=== PATIENT | male | born 1955 | race Hispanic/Latino ===

== ENCOUNTER 2020-09-30 05:56 | Day surgery (SDC) | payer OTHER ==
[2020-09-30] MEDS ORDERED: ASPIRIN EC 325 MG TAB PO ONE (06:50)
[2020-09-30] MEDS ORDERED: SODIUM CHLORIDE 0.9% 500 ML 500 ML IV SCH (07:00)
[2020-09-30] MEDS ORDERED: ASPIRIN EC 81 MG TAB PO ONE ×2 (07:25→07:26)
[2020-09-30] MEDS ORDERED: HEPARIN/NS 5000 UNIT/500ML 1,000 ML IR ONE (07:56)
[2020-09-30] MEDS: LIDOCAINE (2%) 20 MG/1 ML VIAL 20 ML MDV INFILTRATI ONE ×2 (08:29→08:45)
[2020-09-30] MEDS: fentaNYL 100 MCG/2 ML INJ ONE ×2 (08:29→08:38)
[2020-09-30] MEDS: MIDAZOLAM 2 MG/2 ML INJ ONE ×2 (08:29→08:38)
[2020-09-30] MEDS: VERAPAMIL 5 MG/2 ML INJ ONE ×2 (08:30→08:49)
[2020-09-30] MEDS: HEPARIN 10,000 UNITS/10 ML VIAL ONE ×2 (08:30→08:49)
[2020-09-30] MEDS: NITROGLYCERIN SYRINGE 3 ML ONE ×2 (08:31→08:49)
--- NOTE | 2020-09-30 09:25 | Cardiac Catherization Report ---
LEFT HEART CATHETERIZATION CLINICAL INFORMATION: A 64-year-old gentleman who is a smoker, diabetes, hypertension, cholesterol, known coronary artery disease, having worsening exertional shortness of breath and chest pain with exertion, known [employer] of RCA. PROCEDURE: Moderate sedation started at 8:38, finished at 9:00, 22 minutes of moderate sedation. Procedure was done via the right radial artery, sterile technique, local anesthesia, 6-Portuguese radial sheath inserted. Left system engaged with a JL3.5 catheter. Left main is large and patent, bifurcates into large LAD, proximal, mid diffuse disease with areas of 60-90%, small diagonal 1, 2 and 3 are patent, rest mid to distal LAD is a medium to large caliber vessel that is patent. Circumflex is a medium to large caliber vessel, mid stent is patent. OM1 ostial has 90% of a medium caliber vessel. OM2 is a medium caliber vessel, ostial 20%. Circumflex bifurcation has 20% lesion. You see left to right collaterals feeding to a small to medium caliber PDA. RCA is a medium caliber vessel, proximal 100%. LV gram done in HEBREW and MCDANIEL view shows normal LV function, LVEDP of 10 mmHg, LV is 160. Aortic is 157/69, no gradient across the aortic valve on pullback. 5-Portuguese catheters all taken over guidewire, 6-Portuguese radial sheath was discontinued. Radial band applied. No hematoma, no bleeding. SUMMARY: Left main patent, LAD proximal, mid diffuse 60-90%, mid to distal LAD patent, small diagonal 1, 2, and 3 patent, circumflex mid stent patent. Then, another 20% lesion. OM1 ostial medium caliber, 90%. OM2 ostial 20%, RCA 100% with left to right collaterals, normal LV function. The patient will be referred for bypass surgery. Discussed this with the patient and the patient's family and the patient will stop Plavix therapy. JOB# [id number] PHANI/GELY
[2020-09-30] MEDS ORDERED: HYDROcodone/ACETAMINOPHEN 5-325 MG TAB PO PRN (09:27)
[2020-09-30] MEDS ORDERED: traMADol 50 MG TAB PO PRN (09:27)
--- NOTE | 2020-09-30 09:30 | Short Stay Summary ---
Short Stay Documentation Date of service: 09/30/20 - History H&P: obtained from office - Allergies and Medications Current Medications: Allergies niacin Adverse Reaction (Verified 04/16/15 14:34) Swelling Home Medications Medication Instructions Recorded Confirmed Last Taken Type Aspirin [Adult Low Dose Aspirin EC] 81 mg PO DAILY 04/16/15 09/30/20 09/29/20 History 81 mg Clopidogrel Bisulfate [Clopidogrel] 75 mg PO DAILY 04/16/15 09/30/20 09/29/20 History 75 mg lisinopriL [Lisinopril] 40 mg PO DAILY 04/16/15 09/30/20 09/29/20 History 40 mg Atorvastatin Calcium [Lipitor] 20 mg PO DAILY 05/25/15 09/30/20 09/29/20 History 20 mg Fenofibrate 160 mg PO DAILY 05/25/15 09/30/20 09/29/20 History 160 mg Metoprolol Xl [Metoprolol 25 mg PO QDAY 05/25/15 09/30/20 09/29/20 History SUCCINATE ER TAB] 25 mg Empagliflozin [Jardiance] 25 mg PO DAILY 09/30/20 09/30/20 09/29/20 History 25 mg amLODIPine 5 mg PO DAILY 09/30/20 09/30/20 09/29/20 History 5 mg glipiZIDE XL [Glucotrol Xl] 5 mg PO 09/30/20 09/29/20 History 5 mg Active Medications Hydrocodone Bitart/Acetaminophen (Hydrocodone/Acetaminophen 5-325 Mg Tab) 1 each PO Q4H PRN PRN Reason: Pain, Moderate (4-6) Sodium Chloride (Nacl 0.9% 500 Ml) 500 mls @ 50 mls/hr IV DIRECT [place] Stop: 09/30/20 16:59 Last Admin: 09/30/20 07:28 Dose: 50 mls/hr Documented by: Tramadol HCl (Tramadol 50 Mg Tab) 50 mg PO Q4H PRN PRN Reason: Pain, Mild (1-3) - Brief post op/procedure progress note Date of procedure: 09/30/20 Pre-op diagnosis: sob Post-op diagnosis: same Procedure: see report Anesthesia: local Estimated blood loss: none Pathology: none - Disposition Condition at discharge: Good Disposition: DC-01 TO HOME OR SELFCARE - Discharge Diagnoses (1) Smoker Status: Chronic (2) SOBOE (shortness of breath on exertion) Status: Acute (3) S/P PTCA (percutaneous transluminal coronary angioplasty) Status: Chronic (4) Diabetes Status: Chronic Qualifiers: Diabetes mellitus type: type 2 Diabetes mellitus complication status: with circulatory complication Diabetes mellitus complication detail: with other circulatory complications (5) HTN (hypertension) Status: Chronic Qualifiers: Hypertension type: essential hypertension Qualified Code(s): I10 - Essential (primary) hypertension (6) Hyperlipidemia Status: Chronic Qualifiers: Hyperlipidemia type: moderate mixed hyperlipidemia not requiring statin therapy Qualified Code(s): E78.2 - Mixed hyperlipidemia Short Stay Discharge Plan Activity: advance as tolerated Diet: low fat, low cholesterol, low salt, diabetic Wound: change dressing Follow up with: JUSTO COELLO MD [Primary Care Provider] - 7 Days
[2020-09-30 12:53] VITALS: BP 152/76
--- NOTE | 2020-10-01 11:25 | Electrocardiograph Report ---
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
== END 2020-09-30 13:23 | disposition home or self-care (01) ==
LOC: CATHLABREC 05:56
PROVIDERS: ATTEND Internal Medicine
DX: R06.02 Shortness of breath (principal); R07.89 Other chest pain; I25.10 Atherosclerotic heart disease of native coronary artery without angina pectoris; I10 Essential (primary) hypertension; E11.9 Type 2 diabetes mellitus without complications; F17.210 Nicotine dependence, cigarettes, uncomplicated; M06.9 Rheumatoid arthritis, unspecified; F41.9 Anxiety disorder, unspecified; Z83.3 Family history of diabetes mellitus; Z79.82 Long term (current) use of aspirin; Z79.899 Other long term (current) drug therapy; Z98.61 Coronary angioplasty status; Z82.5 Family history of asthma and other chronic lower respiratory diseases; Z82.61 Family history of arthritis; Z82.49 Family history of ischemic heart disease and other diseases of the circulatory system
CPT/HCPCS: 82962; 93005; 93458; 99156; C1894; J1644; J2250; J3010; J7040; Q9967